=== PATIENT | male | born 1980 | race Two or more races ===

== ENCOUNTER 2018-02-23 05:44 | Emergency (ER) | payer BC ==
[2018-02-23 05:52] VITALS: BMI 38.0
--- NOTE | 2018-02-23 05:57 | PDOC ---
History of Present Illness - General Chief Complaint: Pain, Acute Stated Complaint: BACK PAIN Time Seen by Provider: 02/23/18 05:57 History Source: Patient Exam Limitations: No Limitations - History of Present Illness Initial Comments: 02/23/18 06:09 37M with PMHx HTN not on meds p/w cc of L sided back pain waxing and waning x3- 4 days. Pain does not radiate or migrate, worse with movement. Denies N/V, no abd pain, no urinary sxs to include dysuria, hematuria, no scrotal pain. Denies trauma, no LE weakness, numbness, paresthesias. No fever/chills. No IVDU. Past History - Past Medical History Allergies/Adverse Reactions: Allergies Allergy/AdvReac Type Severity Reaction Status Date / Time No Known Allergies Allergy Verified 02/23/18 05:45 Home Medications: Ambulatory Orders NK [No Known Home Medication] 02/23/18 COPD: No Other medical history: DENIES - Suicide/Smoking/Psychosocial Hx Smoking History: Never smoked Have you smoked in the past 12 months: No Information on smoking cessation initiated: No Hx Alcohol Use: No Drug/Substance Use Hx: No Substance Use Type: None Review of Systems - Review of Systems Able to Perform ROS?: Yes Constitutional: No: Chills, Fever Respiratory: No: Cough, Orthopnea, Shortness of Breath Cardiac (ROS): No: Chest Pain ABD/GI: No: Abdominal Distended, Nausea, Vomiting : Yes: Flank Pain. No: Burning, Dysuria, Discharge, Hematuria Musculoskeletal: Yes: Back Pain Neurological: No: Headache, Numbness *Physical Exam - Vital Signs Last Vital Signs Temp Pulse Resp BP Pulse Ox 98 F 59 L 20 156/112 99 02/23/18 05:45 02/23/18 05:45 02/23/18 05:45 02/23/18 05:45 02/23/18 05:45 - Physical Exam General Appearance: Yes: Nourished, Appropriately Dressed, Apparent Distress Respiratory/Chest: positive: Lungs Clear. negative: Chest Tender, Normal Breath Sounds Cardiovascular: positive: Regular Rhythm, Regular Rate Gastrointestinal/Abdominal: positive: Normal Bowel Sounds, Flat, Soft Musculoskeletal: positive: CVA Tenderness (L) Extremity: positive: Normal Inspection, Normal Range of Motion. negative: Tender, Swelling Integumentary: positive: Normal Color, Dry, Warm Neurologic: positive: Fully Oriented, Alert, Normal Mood/Affect Medical Decision Making - Medical Decision Making 02/23/18 06:13 37M with PMHx HTN not on meds with cc of pain to L flank, intermittent x 3d. No back pain red flags. Ddx includes msk back pain/spasm, renal colic. - toradol - UA/U cx - spiral CT a/p *DC/Admit/Observation/Transfer - Discharge Dispostion Condition at time of disposition: Stable - Referrals - Patient Instructions - Post Discharge Activity
[2018-02-23] MEDS ORDERED: KETOROLAC TROMETHAMINE 60 MG/2 ML VIAL IM ONE (06:05)
[2018-02-23] MEDS ORDERED: KETOROLAC TROMETHAMINE 60 MG/2 ML VIAL ONE (06:06)
[2018-02-23 07:13] LABS: URINE APPEARANCE CLEAR; URINE BILIRUBIN NEGATIVE (<2.0 mg/dL); URINE BLOOD NEGATIVE (NEGATIVE); URINE COLOR YELLOW; URINE GLUCOSE (UA) NEGATIVE (NEGATIVE); URINE KETONE NEGATIVE (NEGATIVE); URINE LEUK ESTERASE NEGATIVE (NEGATIVE); URINE NITRITE NEGATIVE (NEGATIVE); URINE PROTEIN NEGATIVE (NEGATIVE); URINE UROBILINOGEN NEGATIVE mg/dL (0.2-1.0)
--- NOTE | 2018-02-23 07:22 | PDOC ---
*Physical Exam - Vital Signs Last Vital Signs Temp Pulse Resp BP Pulse Ox 98 F 59 L 20 156/112 99 02/23/18 05:45 02/23/18 05:45 02/23/18 05:45 02/23/18 05:45 02/23/18 05:45 ED Treatment Course - Medications Given in the ED: ED Medications Discontinued Medications Generic Name Dose Route Start Last Admin Trade Name Karl PRN Reason Stop Dose Admin Ketorolac Tromethamine 60 mg 02/23/18 06:05 02/23/18 06:18 Toradol Injection - IM 02/23/18 06:06 60 mg ONCE ONE Administration Medical Decision Making - Medical Decision Making 02/23/18 07:18 Pt received at 7am signout, presented with flank pain, suspected stone vs MSK pain. UA pending, spiral CT pending. He received toradol with incomplete relief , however, he declined additional medication at the time. He is currently in CT. Will f/u results and reassess. 02/23/18 08:52 CT negative for stone, UA wnl. Pt reassessed. He states he felt some relief with toradol, was able to rest. Pain is not completely resolved, however he declines any other medication including muscle relaxer. I counseled him that while his results are wnl, it is always possible that it is too early to see pathology. Therefore, if symptoms persist or worsen, he should return to ED right away. *DC/Admit/Observation/Transfer Diagnosis at time of Disposition: Flank pain - Discharge Dispostion Disposition: HOME Condition at time of disposition: Stable Admit: No - Referrals - Patient Instructions Printed Discharge Instructions: DI for Flank Pain - Post Discharge Activity
[2018-02-23 09:13] VITALS: BP 132/93; PULSE 58; TEMP 97.8
== END 2018-02-23 09:13 | disposition home or self-care (01) ==
LOC: FER 05:44
PROC: 3E0233Z Introduction of Anti-inflammatory into Muscle, Percutaneous Approach (ICD-10-PCS; principal; 2018-02-23)
DX: R10.32 Left lower quadrant pain (principal); I10 Essential (primary) hypertension
CPT/HCPCS: 74176; 81003; 87086; 99281-25

== ENCOUNTER 2020-12-25 13:25 | Emergency (ER) | payer BC | END 2020-12-25 13:31 | disposition home or self-care (01) | LOC: JVIRT 13:25 | DX: Z20.822 Contact with and (suspected) exposure to COVID-19 (principal) | CPT/HCPCS: C9803; G2012-GT; U0003 ==